=== PATIENT | female | born 1965 | race Caucasian/White ===

== ENCOUNTER 2017-01-18 14:16 | Inpatient (IN) | payer OTHER, MEDICARE ==
[~2017-01-18] VITALS: Ht 167.6 cm; Wt 61.2 kg
[~2017-01-18 14:16] MED LIST: CALCIUM 500 +1 EAC5 PO; DAILY MULTIPLE1 EACH PO; DOCUSATE SODIU100 M3 PO; FLUOXETINE HCL20 M2 PO; GABAPENTIN600 M1 PO; IBUPROFEN800 M1 PO; LACTULOSE10 GM/153 PO; LINZESS290 MC1 PO; LORAZEPAM1 M1 PO; MECLIZINE HCL25 MG PO; MIRALAX17 G1 PO; NEURONTIN800 M2 PO; NEXIUM40 M1 PO; NITRO-BID1 GM TOP; ONDANSETRON HCL8 MG PO; PERCOCET 7.5-31 EACH PO; PROAIR HFA8.5 GM INH; QVAR8.7 G1 INH; SENNA S TABLET1 EACH PO; SYMBICORT 16010.2 GM INH; TEGRETOL200 M1 PO; TEMAZEPAM30 M1 PO; TRAZODONE HCL150 M1 PO
--- NOTE | 2017-01-18 17:09 | ED GENERAL ADULT ---
History of Present Illness General Chief Complaint: General Adult Stated Complaint: MS EXACERBATION Source: patient, family, old records Exam Limitations: no limitations Vital Signs & Intake/Output Vital Signs & Intake/Output Vital Signs Date Time Temp Pulse Resp B/P Pulse O2 O2 Flow FiO2 Ox Delivery Rate 01/18 2026 97.0 65 18 126/60 98 Room Air Room Air 01/18 1905 96.8 63 20 113/61 98 Room Air 01/18 1436 98.8 72 18 198/62 97 Room Air Allergies Coded Allergies: phenytoin (From DILANTIN) (Severe, can't breath and throat swells up 10/11/16) Latex, Natural Rubber (RASH 03/13/16) Sulfa (Sulfonamide Antibiotics) (Severe, VOMIT 03/13/16) Reconcile Medications Albuterol Sulfate (Proair Hfa) 90 MCG HFA.AER.AD 2 PUF INH Q6H PRN SOB ( Reported) Beclomethasone Dipropionate (QVAR) 80 MCG AER.W.ADAP 2 PUF INH BID PRN SOB ( Reported) Budesonide/Formoterol Fumarate (Symbicort 160-4.5 Mcg Inhaler) (Unknown Strength ) HFA.AER.AD 2 PUFF INH BID PRN SOB (Reported) Calcium Carbonate/Vitamin D3 (Calcium 500 + D Tablet) 500 MG-400 TABLET 1 TAB PO BID SUPPLEMENT (Reported) Carbamazepine (Tegretol) 200 MG TABLET 1 TAB PO BID seizures (Reported) Carbamazepine (Tegretol) 200 MG TABLET 3 TAB PO QPM SEIZURES (Reported) Docusate Sodium 100 MG CAPSULE 1 CAP PO QAM CONSTIPATION (Reported) Esomeprazole (Nexium) 40 MG CAPSULE.DR 1 CAP PO DAILY GI (Reported) Fluoxetine HCl 20 MG CAPSULE 3 CAP PO DAILY MENTAL HEALTH (Reported) Gabapentin (Neurontin) 800 MG TABLET 2 TAB PO QPM SEIZURES (Reported) Gabapentin 600 MG TABLET 2 TAB PO TID seizures (Reported) Ibuprofen 800 MG TABLET 1 TAB PO Q6-8P PRN PAIN (Reported) Lactulose 10 GRAM/15 ML SOLUTION 20 ML PO DAILY PRN CONSTIPATION (Reported) Linaclotide (Linzess) 290 MCG CAPSULE 1 CAP PO QAM GI (Reported) Lorazepam 1 MG TABLET 1 TAB PO 4 TIMES/DAY ANXIETY (Reported) Meclizine HCl 25 MG TABLET 1 TAB PO TIDPRN PRN DIZZINESS (Reported) Multivitamin (Daily Multiple Vitamin) 1 EACH TABLET 1 TAB PO QAM SUPPLEMENT ( Reported) Naloxegol Oxalate (Movantik) 25 MG TABLET 1 TAB PO QAM CONSTIPATION (Reported ) Nitroglycerin (Nitro-Bid) 2 % OINT...G. 1 GM TOP EVERY 4 HRS/AWAKE PRN CHEST PAIN please have 12 hour period of no nitroglycerin use Ondansetron HCl 8 MG TABLET 1 TAB PO TID PRN NAUSEA/VOMITING (Reported) Oxycodone HCl/Acetaminophen (Percocet 7.5-325 MG Tablet) 7.5 MG-325 MG TABLET 1 TAB PO Q6-PRN PRN PAIN (Reported) Polyethylene Glycol 3350 (Miralax) 17 GRAM POWD.PACK 1 PAC PO DAILY PRN CONSTIPATION (Reported) dissolve in water Sennosides/Docusate Sodium (Senna S Tablet) 8.6 MG-50 MG TABLET 2 TAB PO DAILY PRN CONSTIPATION (Reported) Temazepam 30 MG CAPSULE 1 CAP PO QPM SLEEP (Reported) Trazodone HCl 150 MG TABLET 2 TAB PO QHS UNKNOWN (Reported) Triage Note: PT STATES THAT SHE HAS BEEN HAVING MS FLARE UP FOR THE PAST 2 WEEKS, CALLED DR MYERS AND WAS TOLD TO COME TO ER FOR ADMISSION. PT STATES THAT SHE DOES NOT DO OUT PT BECAUSE SHE LIVES IN [place]. PT COMPLAINS OF LEG PAIN AND BURNING. Triage Nurses Notes Reviewed? yes Onset: Gradual Duration: week(s): (2), constant, continues in ED, getting worse Timing: recent history Injury Environment: home Severity: severe Severity Numbers: 10 No Modifying Factors: none Associated Symptoms: DENIES HPI: 52 year old female with past medical history significant for multiple sclerosis diagnosed in 1997, follows Dr. Paulson, neuropathic pain, chronic constipation, GERD, depression, anxiety, insomnia, irritable bowel syndrome, pseudoseizures resents sent in by her neurologist for evaluation and admission for IV Solu-Medrol. The patient states that she's had progressively worsening difficulty walking, heaviness in her legs numbness pain needles with frequent falls getting worse over the past several weeks. There is been no recent head strike or other injury. There is been no fever no chills no chest pain shortness of breath swelling or rashes to her skin. She presents sent in by her neurologist for administration of IV Solu-Medrol 1 g over one to 2 hours for 5 days. There is no modifying factors or associated symptoms otherwise. No trauma from the falls (LARA MURCIA) Past History Travel History Traveled to [place] past 21 day No Medical History Any Pertinent Medical History? see below for history Neurological: multiple sclerosis, PSEUDO SEIZURES EENT: allergies Cardiovascular: hyperlipidemia Respiratory: asthma Gastrointestinal: GERD, IRRITABLE COLON SYNDROME Hepatic: NONE Renal: NONE Musculoskeletal: OSTEOPENIA Psychiatric: anxiety, depression Endocrine: NONE Blood Disorders: anemia Cancer(s): NONE ENGINEERING OFFICER/Reproductive: NONE History of MRSA: Yes History of VRE: No History of CDIFF: No Pneumonia Vaccine: 07/27/16 Surgical History Surgical History: unobtainable Psychosocial History Who do you live with Significant Other Services at Home None What is your primary language [place] Tobacco Use: Never used ETOH Use: denies use Illicit Drug Use: denies illicit drug use Family History Family History, If Any: FATHER Multiple sclerosis Hx Contributory? No (LARA MURCIA) Review of Systems Review of Systems Constitutional: Reports: see HPI. All Other Systems: Reviewed and Negative Comments Review of systems: See HPI, All other systems negative. Constitutional, no chills no fever, no malaise HEENT: No visual changes no sore throat no congestion, Cardiovascular: No chest pain , no palpitation , Skin, no rashes, no change in skin Respiratory: No dyspnea no cough no sputum GI: No nausea no vomiting, no diarrhea, : No dysuria No hematuria, Muscle skeletal: No joint pain, no joint swelling, no back pain, no neck pain, Neurologic: numbness no confusion, no headache Psych: No stress. Heme/endocrine: No bruising no bleeding Immunology: No lymphadenopathy (LARA MURCIA) Physical Exam Physical Exam General Appearance: well developed/nourished, alert, awake Comments: Well-developed well-nourished person in no acute distress HEENT: Normal EENT exam; PERRL, EOMI, HEAD is atraumatic. moist mucous membranes. Neck: Supple, normal range of motion Back: Nontender,. Full range of motion Cardiovascular: Regular rate and rhythms no murmurs rubs Respiratory:No respiratory distress. Patient speaking in full complete sentences. Breath sounds clear to auscultation bilaterally: NO W/R/R Abdomen: Soft, nontender nondistended, no appreciable organomegaly. Normal bowel sounds. No rebound/guarding, Extremity: No edema, full range of motion of extremities, normal and equal pulses bilaterally, 3 out of 5 strength noted to bilateral lower extremities, 5 OUT OF 5 strength b/l ue Neuro: Alert oriented x3, motor sensory normal, cranial nerves II through XII grossly intact. There were no obvious focal neurologic abnormalities. Skin: No appreciable rash on exposed skin, skin is warm and dry. Psych: Mood and affect is normal, memory and judgment is normal. Core Measures ACS in differential dx? No CVA/TIA Diagnosis: No Severe Sepsis Present: No Septic Shock Present: No (BEBETO MARTINS,LARA) Progress Differential Diagnoses I considered the following diagnoses in my evaluation of the patient: MS exacerbation dehydration and electrolyte abnormality Plan of Care: Orders Procedure Date/time Status Regular Diet 01/19 B Active OXYGEN SETUP (GEN) 01/18 1925 Active Saline Lock 01/18 1925 Active Admit to inpatient 01/18 1925 Active Vital Signs 01/18 1925 Active Activity/Ambulation 01/18 1925 Active Code Status 01/18 1925 Active Patient Data 01/18 1923 Active Intake & Output 01/18 191 Active COMPREHENSIVE METABOLIC PANEL 01/18 173 Complete CBC WITHOUT DIFFERENTIAL 01/18 173 Complete Current Medications Sig/Lenny Start time Last Medication Dose Stop Time Status Admin Carbamazepine 600 MG ONCE ONE 01/18 2100 AC (Tegretol XR 200 MG) 01/18 2101 Gabapentin 1,600 MG ONCE ONE 01/18 2100 AC (Neurontin) 01/18 2101 Lorazepam 1 MG ONE ONE 01/18 2100 AC (Ativan) 01/18 2101 Temazepam 30 MG ONCE ONE 01/18 2100 AC (Restoril) 01/18 2101 Trazodone HCl 300 MG ONCE ONE 01/18 2100 AC (Desyrel) 01/18 2101 Methylprednisolone 1,000 MG ONCE ONE 01/18 1745 AC (Solu Medrol) 01/18 2246 Dextrose/Water 1,000 ML (D5W 1000) Oxycodone HCl 5 MG ONCE ONE 01/18 1745 CAN (Roxicodone) 01/18 174 Laboratory Tests 01/18/17 1839: Anion Gap 7, Estimated GFR > 60, BUN/Creatinine Ratio 18.8, Glucose 95, Calcium 9.0, Total Bilirubin 0.3, AST 24, ALT 31, Alkaline Phosphatase 60, Total Protein 5.7 L, Albumin 3.4 L, Globulin 2.3, Albumin/Globulin Ratio 1.5, CBC w Diff NO MAN DIFF REQ, RBC 3.91 L, MCV 87.2, MCH 28.1, RDW 16.6 H, MPV 8.7, Gran % 45.4 , Lymphocytes % 41.7, Monocytes % 10.7 H, Eosinophils % 1.0, Basophils % 1.2, Absolute Granulocytes 2.0, Absolute Lymphocytes 1.8, Absolute Monocytes 0.5, Absolute Eosinophils 0, Absolute Basophils 0.1, PUBS MCHC 32.2 L Labs ordered old records reviewed, sOLuMedrol 1 g IV ordered 1919 case d/w dr NORWOOD WILL ADMIT (LARA MURCIA) Initial ED EKG: none (LARA MURCIA) Departure Departure Time of Disposition: 1919 Disposition: STILL A PATIENT Condition: Stable Clinical Impression Primary Impression: Multiple sclerosis exacerbation Secondary Impressions: Gait instability Referrals: UNKNOWN (PCP) Departure Forms: Customer Survey General Discharge Information Admission Note Spoke With: LISET NORWOOD MD Documentation of Exam: Documentation of any treatments & extenuating circumstances including Concerns Regarding Discharge (functional status, medication knowledge or non-compliance, living conditions, etc.) that warrant an admission rather than observation: TREND LABS, IV STEROIDS, NEURO CONSULT, PREMATURE DISCHARGE WOULD BE MEDICALLY HARMFUL GIVEN GAIT INSTABILITY (LARA MURCIA) PA/TREE KILLER Co-Sign Statement Statement: ED Attending supervision documentation- x I saw and evaluated the patient. I have also reviewed all the pertinent lab results and diagnostic results. I agree with the findings and the plan of care as documented in the PA's/TREE KILLER's documentation. [] I have reviewed the ED Record and agree with the PA's/TREE KILLER's documentation. [] Additions or exceptions (if any) to the PAs/TREE KILLER's note and plan are summarized below: [] (ALEIDA HAMMOND,BOB) Critical Care Note Critical Care Note Critical Care Time: non-applicable (LARA MURCIA)
[2017-01-18] MEDS ORDERED: TRAZODONE HCL150 M1 PO (18:14)
[2017-01-18] MEDS ORDERED: MOVANTIK25 M1 PO (18:15)
[2017-01-18] MEDS ORDERED: SENNA S TABLET1 EACH PO (18:26)
[2017-01-18] MEDS ORDERED: QVAR8.7 G1 INH (18:26)
[2017-01-18 18:54] LABS: ABSOLUTE BASOPHIL COUNT 0.1 /CUMM (0.0-0.2); ABSOLUTE EOSINOPHIL COUNT 0 /CUMM (0.0-0.7); ABSOLUTE LYMPH COUNT 1.8 /CUMM (1.2-3.4); ABSOLUTE MONOCYTE COUNT 0.5 /CUMM (0.10-0.60); BASOPHIL % 1.2 % (0.0-2.0); GRANULOCYTE % 45.4 % (42.2-75.2); HEMATOCRIT 34.1 % (37-47); MEAN CORPUSCULAR HGB 28.1 PG (27.0-31.0); MEAN CORPUSCULAR HGB CONC 32.2 G/DL (33.0-37.0); MEAN CORPUSCULAR VOLUME 87.2 FL (81.0-99.0); MEAN PLATELET VOLUME 8.7 FL (7.4-10.4); PLATELET COUNT 153 /CUMM (130-400); RBC DISTRIBUTION WIDTH 16.6 % (11.5-14.5); RED BLOOD CELL CT 3.91 /CUMM (4.20-5.40); WHITE BLOOD CELL COUNT 4.4 /CUMM (4.8-10.8)
--- NOTE | 2017-01-18 21:37 | Admission Certification ---
Admission Certification Certification Statement - As attending physician, I certify that at the time of - admission, based on clinical presentation, severity of - symptoms, need for further diagnostic testing and - therapeutic interventions, and risk of adverse outcomes - without in-hospital treatment, in my clinical assessment, - this patient requires an acute hospital stay for a minimum - of two nights or longer. I have also considered psychsocial - factors such as support system, advanced age, financial - issues, cognitive issues, and failed out-patient treatments, - past re-admission history, safety of patient, and lack of - compliance as applicable. Specific rationale supporting this admission is: MS exacerbation.
[2017-01-18 21:40] VITALS: BP 130/74
--- NOTE | 2017-01-18 21:48 | History & Physical ---
[facility] 01[facility]18[facility]17 1957: General Information and HPI MD Statement: I have seen and personally examined UZMA FERNANDES and documented this H&P. The patient is a 52 year old F who presented with a patient stated chief complaint of increased weakness, falls, blurry vision and pins and needles x 2 weeks. Source of Information: patient Exam Limitations: no limitations History of Present Illness: 52-year-old woman, with a past medical history of multiple sclerosis previously been on plasmapheresis, irritable bowel syndrome, pseudoseizures, history of palpitations, anxiety, depression, GERD, Asthma, urinary retention due to MS, presented to the [facility] ED today with complaints of increased weakness , difficulty walking, sensations of pins and needles and frequent falls since the past 2 weeks. According to the patient she started developing these symptoms 2 weeks ago but has been progressively getting was. She reported that these are the usual symptoms she gets whenever she has an MS exacerbation. She started developing weakness in her lower extremities that led to difficulty walking even with a walker and she ended up having 3 to 4 falls almost every day. She also had associated hypersensitivity to touch and pain, pain that could be as bad as 10+/ 10, burning sensation like somebody has dropped a bucket of water on her legs, sensations of pins and needles, heavy legs as if they were log/lead, and numbness. He also reported blurring of her vision, and at times she becomes cross eyed that leads to headaches as well. According to the patient whenever she starts with the symptoms she goes to her primary care physician, Dr. Mere Latif, at [facility], who contacts Dr. Paulson, who is the patient's outpatient neurologist and MS doctor, and she gets admitted to [facility] for IV steroids. Today [facility] refused admission and she came to [facility], where she actually likes it better. She used to have to MS exacerbations per the past 2 years she started having 3 MS exacerbations per year. Last MS exacerbation was in September 2016 when she was admitted to [facility]. At that time she also had a seizure. She has a history of pseudoseizures and her last seizure was in October 2016, but was not admitted. EEG done in November 2013, showed abnormal recording because of paroxysmal erythemic slow with activities in the left temporal head region which was consistent with potentially epileptogenic activity. She also has symptoms of constipation alternating with diarrhea secondary to her irritable bowel syndrome. She normally has constipation for 2-3 days, takes her Linzess, and bowel regimen intermittently, and whenever she has a bowel movement it's generally loose. She can have up to 1-3 loose bowel movements the day she has a bowel movement. Also has associated abdominal pain, which is intermittent , and is associated with her irritable bowel syndrome. Today he reports abdominal pain, more in the left lower quadrant, with positive tenderness, but denies any nausea or vomiting. Her last bowel movement was 2 days ago. Quin also reported that she has urinary retention secondary to her MS, she has sensations. However at times she has to push hard to be able to urinate. No history of urinary incontinence but she does report stool incontinence at times because of her loose stools and a history of wearing a diaper at times at night. She also reported burning urination 2 days ago but denied it today. The patient has OT and PT coming over to replace twice a week and nursing will come twice a week as well. She denies chest pain, shortness of breath, although she uses inhalers intermittently but does not have a diagnosis of COPD or asthma. Denies fever or chills. Allergies/Medications Allergies: Coded Allergies: phenytoin (From DILANTIN) (Severe, can't breath and throat swells up 10/11/16) Latex, Natural Rubber (RASH 03/13/16) Sulfa (Sulfonamide Antibiotics) (Severe, VOMIT 03/13/16) Home Med list Albuterol Sulfate (Proair Hfa) 90 MCG HFA.AER.AD 2 PUF INH Q6H PRN SOB ( Reported) Beclomethasone Dipropionate (QVAR) 80 MCG AER.W.ADAP 2 PUF INH BID PRN SOB ( Reported) Budesonide/Formoterol Fumarate (Symbicort 160-4.5 Mcg Inhaler) (Unknown Strength ) HFA.AER.AD 2 PUFF INH BID PRN SOB (Reported) Calcium Carbonate/Vitamin D3 (Calcium 500 + D Tablet) 500 MG-400 TABLET 1 TAB PO BID SUPPLEMENT (Reported) Carbamazepine (Tegretol) 200 MG TABLET 1 TAB PO BID seizures (Reported) Carbamazepine (Tegretol) 200 MG TABLET 3 TAB PO QPM SEIZURES (Reported) Docusate Sodium 100 MG CAPSULE 1 CAP PO QAM CONSTIPATION (Reported) Esomeprazole (Nexium) 40 MG CAPSULE.DR 1 CAP PO DAILY GI (Reported) Fluoxetine HCl 20 MG CAPSULE 3 CAP PO DAILY MENTAL HEALTH (Reported) Gabapentin (Neurontin) 800 MG TABLET 2 TAB PO QPM SEIZURES (Reported) Gabapentin 600 MG TABLET 2 TAB PO TID seizures (Reported) Lactulose 10 GRAM/15 ML SOLUTION 20 ML PO DAILY PRN CONSTIPATION (Reported) Linaclotide (Linzess) 290 MCG CAPSULE 1 CAP PO QAM GI (Reported) Lorazepam 1 MG TABLET 1 TAB PO 4 TIMES/DAY ANXIETY (Reported) Meclizine HCl 25 MG TABLET 1 TAB PO TIDPRN PRN DIZZINESS (Reported) Multivitamin (Daily Multiple Vitamin) 1 EACH TABLET 1 TAB PO QAM SUPPLEMENT ( Reported) Naloxegol Oxalate (Movantik) 25 MG TABLET 1 TAB PO QAM CONSTIPATION (Reported ) Ondansetron HCl 8 MG TABLET 1 TAB PO TID PRN NAUSEA/VOMITING (Reported) Oxycodone HCl/Acetaminophen (Percocet 7.5-325 MG Tablet) 7.5 MG-325 MG TABLET 1 TAB PO Q6-PRN PRN PAIN (Reported) Polyethylene Glycol 3350 (Miralax) 17 GRAM POWD.PACK 1 PAC PO DAILY PRN CONSTIPATION (Reported) dissolve in water Sennosides/Docusate Sodium (Senna S Tablet) 8.6 MG-50 MG TABLET 2 TAB PO DAILY PRN CONSTIPATION (Reported) Temazepam 30 MG CAPSULE 1 CAP PO QPM SLEEP (Reported) Compliance With Home Meds: GOOD Past History Travel History Traveled to [place] past 21 day No Medical History Neurological: multiple sclerosis, PSEUDO SEIZURES EENT: allergies Cardiovascular: hyperlipidemia Respiratory: asthma Gastrointestinal: GERD, IRRITABLE COLON SYNDROME Hepatic: NONE Renal: NONE Musculoskeletal: OSTEOPENIA Psychiatric: anxiety, depression Endocrine: NONE Blood Disorders: anemia Cancer(s): NONE INTERNATIONAL OPERATIONS MANAGER/Reproductive: NONE History of MRSA: Yes History of VRE: No History of CDIFF: No Pneumonia Vaccine: 07/27/16 Surgical History Surgical History: none, cholecystectomy, hysterectomy, left arm graft ECHO Results (as available) Date of last Echo 10/17/16 EF% 65 Past Family/Social History Family History Relations & Conditions if any FATHER Multiple sclerosis DAUGHTER (MS). maternal grandmother (DM). maternal grandfather (DM). paternal grandfather (lung and pancreatic cancer). Psychosocial History Where do you live? Home Who Do You Live With? spouse Services at Home: None Primary Language: French Smoking Status: Never Smoked ETOH Use: denies use Illicit Drug Use: denies illicit drug use Living Will? yes Power of Fitness Professional/HCP? makes decisions herself but in case of emergency and son to be POA Name of POA/HCP: Morgan Winter () Irvin Fernandes (son Functional Ability ADLs Independent: dressing, eating, toileting, bathing. Ambulation: walker IADLs Independent: finances, telephone, medication admin. Needs Assist: housework, food prep, transportation. Review of Systems Review of Systems Constitutional: Reports: weakness. EENTM: Reports: blurred vision. Cardiovascular: Reports: no symptoms. Respiratory: Reports: no symptoms. GI: Reports: see HPI, abdominal pain, constipation, diarrhea. Denies: nausea, bloody stool. Genitourinary: Reports: see HPI. Musculoskeletal: Reports: see HPI. Skin: Reports: no symptoms. Neurological/Psychological: Reports: see HPI, weakness. Hematologic/Endocrine: Reports: no symptoms. Immunologic/Allergic: Reports: no symptoms. Date of Last Colonoscopy: 04/26/14 Exam & Diagnostic Data Last 24 Hrs of Vital Signs/I&O Vital Signs Date Time Temp Pulse Resp B/P Pulse O2 O2 Flow FiO2 Ox Delivery Rate 01/18 2140 97.6 61 20 130/74 95 Room Air 01/18 2026 97.0 65 18 126/60 98 Room Air Room Air 01/18 1905 96.8 63 20 113/61 98 Room Air 01/18 1436 98.8 72 18 198/62 97 Room Air Intake & Output 01/18 1600 01/18 0800 01/18 0000 Intake Total Output Total Balance Patient 134 lb Weight Physical Exam General Appearance Alert, Oriented X3, Cooperative, No Acute Distress Skin No Rashes, No Breakdown, No Significant Lesion HEENT Atraumatic, PERRLA, EOMI, Mucous Membr. moist/pink Neck Supple, No JVD Lymphatic Cervical nl Cardiovascular Regular Rate, Normal S1, Normal S2, No Murmurs Lungs Clear to Auscultation, Normal Air Movement Abdomen Normal Bowel Sounds, Soft, LLQ tenderness, no CVA tenderness Neurological Normal Speech, rigidity in bilateral lower extremities strength 3/5 bilateral lower extremities, 5/5 bilateral upper extremities sensations intact, but reduced in bilateral lower extremities CN intact Babinski negative propioception intact hyperreflexia in bilateral lower extremities involuntary jerky movements of the legs, intermittently, always associated with MS exacerbation as per the patient Extremities No Clubbing, No Cyanosis, No Edema, Normal Pulses Vascular Normal Pulses, Pulses Symmetrical Last 24 Hrs of Labs/Lewis: Laboratory Tests 01/18/17 1839: Anion Gap 7, Estimated GFR > 60, BUN/Creatinine Ratio 18.8, Glucose 95, Calcium 9.0, Total Bilirubin 0.3, AST 24, ALT 31, Alkaline Phosphatase 60, Total Protein 5.7 L, Albumin 3.4 L, Globulin 2.3, Albumin/Globulin Ratio 1.5, CBC w Diff NO MAN DIFF REQ, RBC 3.91 L, MCV 87.2, MCH 28.1, RDW 16.6 H, MPV 8.7, Gran % 45.4 , Lymphocytes % 41.7, Monocytes % 10.7 H, Eosinophils % 1.0, Basophils % 1.2, Absolute Granulocytes 2.0, Absolute Lymphocytes 1.8, Absolute Monocytes 0.5, Absolute Eosinophils 0, Absolute Basophils 0.1, PUBS MCHC 32.2 L Assessment/Plan Assessment: 52-year-old woman, with a past medical history of multiple sclerosis, irritable bowel syndrome, pseudoseizures, history of palpitations, anxiety, depression, GERD, urinary retention due to MS, presented to the [facility] ED today with complaints of increased weakness, difficulty walking, sensations of pins and needles and frequent falls since the past 2 weeks, admitted to general medicine floor for MS exacerbation. Assessment: 1. MS exacerbation 2. Urinary retention, question UTI 3. Abdominal pain/Irritable bowel syndrome 4. History of pseudoseizures 5. History of anxiety and depression 6. History of shortness of breath, Asthma 7. History of GERD Plan: Admit to general med Vitals every shift 1. MS exacerbation: - The patient has a history of an MS, last exacerbation in September 2016, that is 3 months prior to this admission. Usually has 3 exacerbations per year since the past 2 years now - Previously has been on plasmapheresis, not getting it currently - MRI in Sep 2016 was stable - We'll start her on 1 mg Solu-Medrol infused over 1-2 hours for a total of 5 days (one bag was ordered in the ED, will order 4 more for a total of 5) - We'll premedicate with IV Benadryl 25 mg 1 time before every infusion - Dr. Paulson informed for a consult in the morning, that he has acknowledged - Physical therapy - Occupational therapy - Currently seems euvolemic, but may consider hydration - IV dilauded works well for her. Was in 10+/10 pain on arrival now is at 5/10 which is her baseline., after IV dilauded 0.4 mg - Will keep on IV Dilauded 0.4 mg Q4PRN severe pain (7-10) 2. Urinary retention, with burning micturation, question UTI: - Patient has a history of urinary retention secondary to her MS. She has sensations intact and does not report urinary incontinence but at times she has to strain a little to get her urine out - She sees a urologist for urinary retention and has had some workup done in April 2015 but is not on any medications for urinary retention - In case the patient has trouble passing urine may consider bladder scans/ straight cath if needed. Is important to note that the patient did urinate just prior to the medical team went in for the HPI - As the patient also reported urinary burning 2 days ago and his initial retention with history stagnation and possibility of a UTI we'll check a UA - No fever, no leukocytosis, but may consider starting antibiotics if the UA is positive 3. Abdominal pain/Irritable bowel syndrome: - The patient has a history of retinal bowel syndrome with constipation and diarrhea alternating and not one being predominant and over the other. Her last bowel movement was 2 days ago. - Normally whenever she has a bowel movement after. Constipation it's always loose and that is normal for her - Can have 1-3 loose bowel movements per day on her diarrhea day - She reports abdominal pain intermittently that is associated with her irritable bowel syndrome. She reported abdominal pain today as well with tenderness in the left lower quadrant which is not new for her. - We'll continue with daily Linzess - We'll also continue with when necessary MiraLAX, lactulose and senna S - We'll monitor for abdominal pain in case it gets worse may need further investigation and questionable GI involvement 4. History of pseudoseizures: - The patient has a history of seizures, pseudoseizures as per her medical records and the patient herself - She had some involuntary jerking movements of her leg which she states is normal in her MS exacerbation and anxiety [place] adds to it. For her seizures jerking movements of her extremities and maintaining a position with some rigidity - Last seizure was in October 2016, at home, did not warrant admission - Of note she did have a seizure in September 2016 when she was last admitted to [facility] for MS exacerbation - We'll continue with carbamazepine 200 mg twice a day and 600 mg at night - We'll also continue with gabapentin 1200 mg 3 times a day and 1600 mg at night - We'll follow seizure precautions 5. History of anxiety and depression: - Patient has a history of anxiety and depression that aggravates whenever she has an MS exacerbation - We'll continue with Ativan 1 mg 4 times a day - We'll also continue with Restoril 30 mg every night - We'll continue with Prozac 60 mg every morning 6. History of shortness of breath, no diagnosis of asthma or COPD: - Patient does not have a diagnosis of COPD or asthma but has history of shortness of breath on and off that could be likely secondary to MS versus anxiety - Currently does not seem to be in any respiratory distress, saturations are beautiful on room air - We'll continue with when necessary albuterol, Symbicort and beclomethasone inhalers, that she uses at home 7. History of GERD: - We'll continue with Nexium 40 mg by mouth daily 8. Regular diet 9. Due to prophylaxis: Subcutaneous heparin 10. Pain pathway: Acetaminophen for mild, 1 Percocet for moderate pain and IV Dilauded severe pain when necessary 11. Full CODE STATUS *The patient has a living will that states that she wants to be cystic but does not want to live like a vegetable. Case of an emergency she can be intubated in CPR done but she is on a ventilator for prolonged time than it should be taken off. She makes her own decisions however in case she is unable to the power of defense attorney would be: , Morgan Yang ([phone]) Son, Irvin Fernandes ([phone]) As Ranked By This Provider Problem List: 1. Multiple sclerosis exacerbation 2. DVT prophylaxis 3. Full code status 4. Anxiety 5. Seizure disorder Core Measures/Miscellaneous Acute Coronary Syndrome ACS Diagnosis: No Cerebrovascular Accident CVA/TIA Diagnosis: No Congestive Heart Failure CHF Diagnosis: No Venous Thromboembolism VTE Risk Factors: Acute medical illness, Age > 40 VTE Prophylaxis [facility]dered Inpt: [facility] prophylaxis d/t: No contraindications No VTE Pharm Prophylaxis d/t: Refused treatment VTE Diagnosis: No VTE Type: NONE VTE Confirmed by (Test): NONE Severe Sepsis Severe Sepsis Present: No Septic Shock Septic Shock Present: No Miscellaneous Documentation Attending Case Discussed With: BARBARA NORWOOD [facility] Primary Care Physician: Dr. Madhavi Latif (At [facility]) Patient sees these Specialists Dr. Paulson, Neurologist Level of Patient Care: General Medicine Consults Needed: Consulting Specialty: Neurology Consulting Physician: Dr. Paulson Reason for Consult: MS exacerbation Resident Review Statement Resident Statement: examined this patient, discussed with agriculture intern, agreed with agriculture intern, reviewed EMR data (avail), discussed with case mgmt Other Findings: Same as Above MAURICIO NORWOOD MD 01/18/171: Attending MD Review Statement Attending Statement Attending MD Statement: examined this patient, discuss w/resident/PA/WOOD STRIP BLOCK FLOOR INSTALLER, agreed w/resident/PA/WOOD STRIP BLOCK FLOOR INSTALLER Attending Assessment/Plan: 52 yo F with h/o multiple sclerosis previously been on plasmapheresis last admitted for exacerbation in Sep 2016, seizure, pseudoseizures, IBS, GERD, anxiety, depression, is here with another episode of MS exacerbation typically with increasing lower extremity weakness, sensation of pins and needles, gait instability and frequent falls over past 2 weeks. She reports urinary retention, wherein she feels the urge but at times has to push hard to evacuate the bladder. Dysuria+. Stool incontinence+. She has been sent in by Dr. Paulson. VSS. Exam: Speech normal, Power LE 4/5, UE 5/5, hyperreflexia, sensation and vision intact, involuntary jerking movements of the leg, tone increased. Labs: WBC 4.4. MRI brain (Sep 2016): No progression or active inflammation of MS 1. MS exacerbation. GM admit, seizure precautions, IV steroids daily for 5 days, premedicate with benadryl. Consult Dr. Paulson. PT/OT. Pain management with dilaudid. 2. Urinary retention in the setting of MS. Rule out UTI. Patient does not straight cath herself. Please obtain UA and assess need for antibiotics. Bladder scan to assess post void residual. DVT ppx Lovenox. Full code.
[2017-01-19 06:54] VITALS: BP 110/64
--- NOTE | 2017-01-19 07:49 | PN- Housestaff ---
ANDREA HAMMOND,SHANTEL 01/19/17 0746: Subjective Follow-up For: MS exacerbation Complaints: feeling weak, frequency Subjective: She was doing occupational therapy at bedside. She has unsteady gait feeling weak. She c/o urgency and feeing of incomplete bladder emptying. She is at baseline independent, ambulatory. Review of Systems Constitutional: Reports: malaise, weakness. Denies: chills, fever. EENTM: Reports: blurred vision. Denies: hearing changes, nasal pain, throat pain. Cardiovascular: Denies: chest pain, orthopena, palpitations, peripheral edema. Respiratory: Denies: cough, short of breath, sputum production, wheezing. Gastrointestinal: Denies: abdominal pain, diarrhea, nausea, vomiting. Genitourinary: Reports: see HPI, frequency, urgency. Musculoskeletal: Reports: muscle pain. Skin: Reports: no symptoms. Neurological/Psychological: Reports: weakness. Hematologic/Endocrine: Reports: no symptoms. Immunologic/Allergic: Reports: no symptoms. Objective Last 24 Hrs of Vital Signs/I&O Vital Signs Date Time Temp Pulse Resp B/P Pulse O2 O2 Flow FiO2 Ox Delivery Rate 01/19 0654 98.3 70 20 110/64 95 Room Air 01/18 2140 97.6 61 20 130/74 95 Room Air 01/18 2026 97.0 65 18 126/60 98 Room Air Room Air 01/18 1905 96.8 63 20 113/61 98 Room Air 01/18 1436 98.8 72 18 198/62 97 Room Air Intake & Output 01/19 0800 01/19 0000 01/18 1600 Intake Total Output Total 350 Balance -350 Output, Urine 350 Patient 135 lb 134 lb Weight Physical Exam General Appearance: Alert, Oriented X3, Cooperative, Mild Distress Skin: No Rashes, No Breakdown, No Significant Lesion HEENT: Atraumatic, PERRLA, EOMI, Mucous Membr. moist/pink Neck: Supple, No JVD, No thryomegaly, No LAD Lymphatic: Cervical nl Cardiovascular: Regular Rate, Normal S1, Normal S2, No Murmurs Lungs: Clear to Auscultation, Normal Air Movement Abdomen: Normal Bowel Sounds, Soft, No Tenderness Neurological: Normal Speech, Normal Tone, Sensation Intact, Cranial Nerves 3-12 NL, decreased strength 4/5 LE Extremities: No Edema, Normal Pulses, No Tenderness/Swelling Vascular: Normal Pulses, Pulses Symmetrical Current Medications: Current Medications Sig/Lenny Start time Last Medication Dose Route Stop Time Status Admin Acetaminophen 650 MG Q6P PRN 01/18 221 AC PO Budesonide/ 2 PUF BID 01/18 2200 AC Formoterol Fumarate INH Calcium/Vitamin D 1 TAB DAILY 01/19 1000 AC PO Carbamazepine 200 MG 1200,1700 01/19 1200 AC PO Carbamazepine 600 MG QPM 01/18 2200 AC PO Carbamazepine 600 MG ONCE ONE 01/18 2100 DC PO 01/18 210 Diphenhydramine HCl 25 MG 2200 01/19 2200 AC IV Diphenhydramine HCl 0 .STK-MED ONE 01/18 1850 DC .ROUTE Diphenhydramine HCl 25 MG ONCE ONE 01/18 1800 DC 01/18 IV 01/18 1801 2149 Docusate Sodium 100 MG QAM 01/19 1000 AC PO Fluoxetine HCl 60 MG DAILY 01/19 1000 AC PO Gabapentin 1,600 MG QPM 01/19 2200 AC PO Gabapentin 1,200 MG 0700,1200,1700 01/19 0700 AC 01/19 PO 0542 Gabapentin 1,600 MG QPM 01/18 2200 CAN PO 01/19 0600 Gabapentin 1,600 MG ONCE ONE 01/18 2100 DC 01/18 PO 01/18 210 2156 Heparin Sodium 5,000 UNIT Q8 01/18 2200 AC 01/19 (Porcine) SC 0541 Hydromorphone HCl 0.4 MG Q4P PRN 01/18 2330 AC IV Hydromorphone HCl 0 .STK-MED ONE 01/18 184 DC .ROUTE Hydromorphone HCl 0.5 MG ONCE ONE 01/18 1845 DC 01/18 IV 01/18 1846 1856 Lactulose 20 GM DAILY NEEDED PRN 01/18 2215 AC PO Linaclotide 290 MCG DAILY 01/19 1000 AC PO Lorazepam 1 MG 4 TIMES/DAY 01/18 2203 AC PO Lorazepam 1 MG ONE ONE 01/18 2100 DC 01/18 PO 01/18 2101 2150 Meclizine HCl 25 MG TIDPRN PRN 01/18 2215 AC PO Meclizine HCl 0 .STK-MED ONE 01/18 1846 DC PO Meclizine HCl 25 MG ONCE ONE 01/18 1745 DC 01/18 PO 01/18 1746 1856 Methylprednisolone 1,000 MG 01/19 220 AC Dextrose/Water 1,000 ML IV 01/23 0000 Methylprednisolone 1,000 MG ONCE ONE 01/18 1745 DC 01/18 Dextrose/Water 1,000 ML IV 01/18 2246 2149 Multivitamins 1 TAB QAM 01/19 1000 AC Therapeutic PO Omeprazole 40 MG DAILY AC 01/19 0700 AC 01/19 PO 0542 Ondansetron HCl 4 MG Q6-PRN PRN 01/18 221 AC PO Oxycodone HCl 5 MG ONCE ONE 01/18 1745 CAN PO 01/18 174 Oxycodone/ 1 TAB Q6P PRN 01/18 221 AC Acetaminophen PO Oxycodone/ 2 TAB Q6P PRN 01/18 221 DC Acetaminophen PO Polyethylene Glycol 17 GM DAILY 01/19 1000 AC PO Senna/Docusate Sodium 2 TAB DAILY PRN 01/18 221 AC PO Temazepam 30 MG QPM 01/19 2200 AC PO Temazepam 30 MG ONCE ONE 01/18 2100 DC PO 01/18 210 Trazodone HCl 300 MG ONCE ONE 01/18 2100 DC 01/18 PO 01/18 2101 2156 Last 24 Hrs of Lab/Lewis Results Last 24 Hrs of Labs/Mics: Laboratory Tests 01/19/17 0550: Sodium Pending, Potassium Pending, Chloride Pending, Carbon Dioxide Pending, Anion Gap Pending, BUN Pending, Creatinine Pending, BUN/Creatinine Ratio Pending , CBC w Diff Pending, WBC Pending, RBC Pending, Hgb Pending, Hct Pending, MCV Pending, MCH Pending, RDW Pending, Plt Count Pending, MPV Pending, PUBS MCHC Pending 01/18/17 1839: Anion Gap 7, Estimated GFR > 60, BUN/Creatinine Ratio 18.8, Glucose 95, Calcium 9.0, Total Bilirubin 0.3, AST 24, ALT 31, Alkaline Phosphatase 60, Total Protein 5.7 L, Albumin 3.4 L, Globulin 2.3, Albumin/Globulin Ratio 1.5, CBC w Diff NO MAN DIFF REQ, RBC 3.91 L, MCV 87.2, MCH 28.1, RDW 16.6 H, MPV 8.7, Gran % 45.4 , Lymphocytes % 41.7, Monocytes % 10.7 H, Eosinophils % 1.0, Basophils % 1.2, Absolute Granulocytes 2.0, Absolute Lymphocytes 1.8, Absolute Monocytes 0.5, Absolute Eosinophils 0, Absolute Basophils 0.1, PUBS MCHC 32.2 L Lines/Diet/Fluids Lines: peripheral lines Assessment/Plan Assessment: 52 yo F with pmh of multiple sclerosis previously been on plasmapheresis last admitted for exacerbation in Sep 2016 (following Dr. Paulson), seizure, pseudoseizures, IBS, GERD, anxiety, depression, is here with another episode of MS exacerbation typically with increasing lower extremity weakness, sensation of pins and needles, gait instability and frequent falls over past 2 weeks. She reports urinary retention, wherein she feels the urge but at times has to push hard to evacuate the bladder. Dysuria+. Stool incontinence+. She has been sent in by Dr. Paulson. 1. MS exacerbation: seizure precautions, continue IV steroids daily for 5 days, premedicate with benadryl. Last MRI brain (Sep 2016): No progression or active inflammation of MSPT/OT. Continue OT/PT. She feels very weak with muscle pain. She has never had outpatient IV steroid. Will follow Dr. Paulson's recommendation. 2. Urinary retention in the setting of MS. Patient does not straight cath herself. Will follow up UA and assess need for antibiotics. Bladder scan to assess post void residual. Pain management with IV dilaudid. DVT ppx Lovenox. Full code. Problem List: 1. Multiple sclerosis exacerbation 2. Seizure disorder 3. Anxiety 4. Gait instability Pain Ratin Pain Location: Muscle pain, LE weakness Pain Goal: Pain 4 or less Pain Plan: IV dilaudid Tomorrow's Labs & Rationales: No labs DVT/Prophylaxis: pharmacological Consulting Request: Consulting Specialty: Neurology Consulting Physician: Dr. Paulson Reason for Consult: MS exacerbation Discharge Plan Stable for Discharge? No JAMIR WILSON MD 01/19/17 1387: Attending MD Review Statement Attending Statement Attending Statement: examined this patient, discuss w/resident/PA/SCIENTIFIC ILLUSTRATOR, agreed w/resident/PA/SCIENTIFIC ILLUSTRATOR, reviewed EMR data (avail), discussed with nursing, amended to note Attending Assessment/Plan: The patient was seen and discussed with house staff. Agree with plan of care. Patient requested time of Medrol dose be earlier (3 pm instead of 10 pm). RN aware and will alter timing.
[2017-01-19 08:12] LABS: ABSOLUTE BASOPHIL COUNT 0 /CUMM (0.0-0.2); ABSOLUTE EOSINOPHIL COUNT 0 /CUMM (0.0-0.7); ABSOLUTE GRANULOCYTE CT 1.7 /CUMM (1.4-6.5); ABSOLUTE LYMPH COUNT 0.5 /CUMM (1.2-3.4); ABSOLUTE MONOCYTE COUNT 0 /CUMM (0.10-0.60); BASOPHIL % 0.3 % (0.0-2.0); EOSINOPHIL % 0.3 % (0-5); HEMATOCRIT 36.4 % (37-47); MEAN CORPUSCULAR HGB 28.9 PG (27.0-31.0); MEAN CORPUSCULAR HGB CONC 33.2 G/DL (33.0-37.0); MEAN CORPUSCULAR VOLUME 87.1 FL (81.0-99.0); PLATELET COUNT 136 /CUMM (130-400); RBC DISTRIBUTION WIDTH 16.5 % (11.5-14.5); RED BLOOD CELL CT 4.18 /CUMM (4.20-5.40); WHITE BLOOD CELL COUNT 2.2 /CUMM (4.8-10.8)
[2017-01-19 08:20] LABS: GRANULOCYTE % 76.8 % (42.2-75.2)
[2017-01-19 14:23] VITALS: BP 104/60
[2017-01-19 22:41] VITALS: BP 120/70
[2017-01-20 06:30] VITALS: BP 126/74
--- NOTE | 2017-01-20 12:37 | PN- Housestaff ---
See Addendum Subjective Follow-up For: MS exacerbation Complaints: no complaints Subjective: Interval history: Overnight the patient did have an episode of seizure-like activity requiring IV Ativan. This morning she states that she feels much better and notices that her symptoms are well-controlled with current regimen of IV steroids and Ativan. Extension without any headache, blurred vision, chest pain, shortness of breath, body aches, fevers or chills at this time Review of Systems Constitutional: Reports: see HPI. EENTM: Reports: no symptoms. Cardiovascular: Reports: no symptoms. Respiratory: Reports: no symptoms. Gastrointestinal: Reports: no symptoms. Musculoskeletal: Reports: see HPI. Objective Last 24 Hrs of Vital Signs/I&O Vital Signs Date Time Temp Pulse Resp B/P Pulse O2 O2 Flow FiO2 Ox Delivery Rate 01/20 0630 98.6 85 20 126/74 93 Room Air 01/19 2241 97.8 99 20 120/70 99 01/19 1423 98.2 70 18 104/60 97 Room Air Intake & Output 01/20 1600 01/20 0800 01/20 0000 Intake Total 100 1600 Output Total 950 900 Balance -850 700 Intake, IV 1000 Intake, Oral 100 600 Number 0 Bowel Movements Output, Urine 950 900 Physical Exam General Appearance: Alert, Cooperative, No Acute Distress Skin: No Significant Lesion HEENT: EOMI, Mucous Membr. moist/pink Cardiovascular: Regular Rate, Normal S1, Normal S2 Lungs: Clear to Auscultation, Normal Air Movement Abdomen: Normal Bowel Sounds, Soft, No Tenderness Extremities: No Edema, Normal Pulses Vascular: Pulses Symmetrical Current Medications: Current Medications Sig/Lenny Start time Last Medication Dose Route Stop Time Status Admin Acetaminophen 650 MG .STK-MED ONE 01/20 0427 DC PO 01/20 0428 Acetaminophen 650 MG .STK-MED ONE 01/19 1537 DC PO 01/19 1538 Acetaminophen 650 MG Q6P PRN 01/18 2215 AC 01/20 PO 0431 Budesonide/ 2 PUF BID 01/18 2200 AC 01/20 Formoterol Fumarate INH 0835 Calcium/Vitamin D 1 TAB DAILY 01/19 1000 AC 01/20 PO 0833 Carbamazepine 200 MG 1200,1700 01/19 1200 AC 01/20 PO 1246 Carbamazepine 600 MG QPM 01/18 2200 AC 01/19 PO 2140 Diphenhydramine HCl 25 MG 2200 02/24 2200 DC IV Diphenhydramine HCl 25 MG 1800 01/19 1800 AC 01/19 IV 1834 Docusate Sodium 100 MG QAM 01/19 1000 AC 01/20 PO 0834 Fluoxetine HCl 60 MG DAILY 01/19 1000 AC 01/20 PO 0833 Gabapentin 1,600 MG QPM 01/19 2200 AC 01/19 PO 2140 Gabapentin 1,200 MG 0700,1200,1700 01/19 0700 AC 01/20 PO 1245 Heparin Sodium 5,000 UNIT Q8 01/18 2200 AC 01/20 (Porcine) SC 1246 Hydromorphone HCl 0.4 MG Q4P PRN 01/18 2330 AC 01/20 IV 1016 Lactulose 20 GM DAILY NEEDED PRN 01/18 2215 AC 01/20 PO 0831 Linaclotide 290 MCG DAILY 01/19 1000 AC 01/20 PO 0834 Lorazepam 1 MG Q6 01/20 0600 AC 01/20 PO 1258 Lorazepam 1 MG ONE ONE 01/20 0315 CAN PO 01/20 0316 Lorazepam 1 MG ONCE ONE 01/20 0315 DC 01/20 IV 01/20 0316 0319 Lorazepam 1 MG 4 TIMES/DAY 01/18 220 DC 01/19 PO 2140 Meclizine HCl 25 MG TIDPRN PRN 01/18 2215 AC 01/20 PO 0832 Methylprednisolone 1,000 MG 1400 01/20 1400 AC Dextrose/Water 1,000 ML IV Methylprednisolone 1,000 MG 1800 01/19 1800 DC 01/19 Dextrose/Water 1,000 ML IV 01/22 2000 1839 Multivitamins 1 TAB QAM 01/19 1000 AC 01/20 Therapeutic PO 0833 Omeprazole 40 MG DAILY AC 01/19 0700 AC 01/20 PO 0554 Ondansetron HCl 4 MG .STK-MED ONE 01/20 0242 DC PO 01/20 0243 Ondansetron HCl 4 MG .STK-MED ONE 01/19 1620 DC PO 01/19 1621 Ondansetron HCl 4 MG .STK-MED ONE 01/19 1618 DC IM 01/19 1619 Ondansetron HCl 4 MG Q6-PRN PRN 01/18 2215 AC 01/20 PO 0245 Oxycodone/ 1 TAB Q6P PRN 02/23 2215 AC Acetaminophen PO Polyethylene Glycol 17 GM DAILY 01/19 1000 AC 01/20 PO 0834 Senna/Docusate Sodium 2 TAB DAILY PRN 01/18 2215 AC 01/19 PO 1151 Temazepam 30 MG QPM 01/19 2200 AC 01/19 PO 2140 Assessment/Plan Assessment: 52 yo F with pmh of multiple sclerosis previously been on plasmapheresis last admitted for exacerbation in Sep 2016 (following Dr. Paulson), seizure, pseudoseizures, IBS, GERD, anxiety, depression, is here with another episode of MS exacerbation typically with increasing lower extremity weakness, sensation of pins and needles, gait instability and frequent falls over past 2 weeks. She reports urinary retention, wherein she feels the urge but at times has to push hard to evacuate the bladder. Dysuria+. Stool incontinence+. She has been sent in by Dr. Paulson. 1. MS exacerbation: * Continue with seizure precautions * IV Solu-Medrol adjusted from 4 PM to 2 PM daily to complete 5 days. Continue premedication with Benadryl * Continue OT/PT * She does report interval improvement in generalized weakness. Will follow Dr. Paulson's recommendation. 2. Urinary retention in the setting of MS. * No evidence of overt urinary retention at this time. * Bladder scan prior to straight cath protocol Pain management with IV dilaudid. DVT ppx Lovenox. Full code. Problem List: 1. Multiple sclerosis 2. Multiple sclerosis exacerbation 3. Seizure disorder Pain Ratin Pain Location: NA Pain Goal: Remain pain free Pain Plan: NA Tomorrow's Labs & Rationales: NA DVT/Prophylaxis: mechanical Consulting Request: Consulting Specialty: Neurology Consulting Physician: Dr. Paulson Reason for Consult: MS exacerbation
[2017-01-20 13:56] VITALS: BP 116/64
[2017-01-20 21:33] VITALS: BP 118/70
[2017-01-21 06:35] VITALS: BP 122/74
--- NOTE | 2017-01-21 07:58 | PN- Housestaff ---
ARVIND SCHULER 01/21/17 0758: Subjective Follow-up For: MS exacerbation Complaints: Tremors nad abdominal discomfort Subjective: Interval history: This morning the patient complained of generalized body shakes and nonspecific abdominal discomfort over the past 1 hour. She denies the sensation of a seizure at this time, fever or chills. Her last bowel movement was yesterday. Review of Systems Constitutional: Reports: see HPI. EENTM: Reports: no symptoms. Cardiovascular: Reports: no symptoms. Respiratory: Reports: no symptoms. Gastrointestinal: Reports: see HPI. Musculoskeletal: Reports: see HPI. Neurological/Psychological: Reports: see HPI. Objective Last 24 Hrs of Vital Signs/I&O Vital Signs Date Time Temp Pulse Resp B/P Pulse O2 O2 Flow FiO2 Ox Delivery Rate 01/21 0635 98.0 65 18 122/74 96 Room Air 01/20 2133 97.0 74 20 118/70 95 Room Air 01/20 1356 98.2 80 20 116/64 95 Intake & Output 01/21 1600 01/21 0800 01/21 0000 Intake Total 240 480 Output Total Balance 240 480 Intake, Oral 240 480 Number 1 Bowel Movements Physical Exam General Appearance: Alert, Cooperative, Tremulous Skin: No Breakdown HEENT: EOMI, Mucous Membr. moist/pink Cardiovascular: Regular Rate, Normal S1, Normal S2, SYstolic murmur present, most pronounce in the aortic region Lungs: Normal Air Movement Abdomen: Normal Bowel Sounds, Soft, No Tenderness Extremities: No Edema, Normal Pulses Vascular: Pulses Symmetrical Current Medications: Current Medications Sig/Lenny Start time Last Medication Dose Route Stop Time Status Admin Acetaminophen 650 MG .STK-MED ONE 01/20 1255 DC PO 01/20 1256 Acetaminophen 650 MG Q6P PRN 01/18 2215 AC 01/20 PO 0431 Budesonide/ 2 PUF BID 01/18 2200 AC 01/21 Formoterol Fumarate INH 0829 Calcium/Vitamin D 1 TAB DAILY 01/19 1000 AC 01/21 PO 0828 Carbamazepine 200 MG 1200,1700 01/19 1200 AC 01/20 PO 1703 Carbamazepine 600 MG QPM 01/18 220 AC 01/20 PO 2130 Diphenhydramine HCl 25 MG 1400 01/20 1400 AC 01/20 IV 1439 Diphenhydramine HCl 25 MG 1800 01/19 1800 DC 01/19 IV 1834 Docusate Sodium 100 MG QAM 01/19 1000 AC 01/21 PO 0828 Fluoxetine HCl 60 MG DAILY 01/19 1000 AC 01/21 PO 0827 Gabapentin 1,600 MG QPM 01/19 2200 AC 01/20 PO 212 Gabapentin 1,200 MG 0700,1200,1700 01/19 0700 AC 01/21 PO 0523 Heparin Sodium 5,000 UNIT Q8 01/18 220 AC 01/21 (Porcine) SC 0525 Hydromorphone HCl 0.4 MG Q4P PRN 01/18 2330 AC 01/21 IV 1007 Lactulose 20 GM DAILY NEEDED PRN 01/18 221 AC 01/20 PO 0831 Linaclotide 290 MCG DAILY 01/19 1000 AC 01/21 PO 0828 Lorazepam 1 MG ONCE ONE 01/21 1030 DC 01/21 IV 01/21 1031 1034 Lorazepam 1 MG Q6 01/20 0600 AC 01/21 PO 0523 Meclizine HCl 25 MG TIDPRN PRN 01/18 221 AC 01/20 PO 1959 Methylprednisolone 1,000 MG 1200 01/21 1200 AC Dextrose/Water 1,000 ML IV Methylprednisolone 1,000 MG 1400 01/20 1400 DC 01/20 Dextrose/Water 1,000 ML IV 1439 Methylprednisolone 1,000 MG 1800 01/19 1800 DC 01/19 Dextrose/Water 1,000 ML IV 01/22 2000 1839 Multivitamins 1 TAB QAM 01/19 1000 AC 01/21 Therapeutic PO 0827 Omeprazole 40 MG DAILY AC 01/19 0700 AC 01/21 PO 0524 Ondansetron HCl 4 MG Q6-PRN PRN 01/18 221 AC 01/21 PO 1028 Oxycodone/ 1 TAB Q6P PRN 01/18 221 AC Acetaminophen PO Polyethylene Glycol 17 GM DAILY 01/19 1000 AC 01/21 PO 0828 Senna/Docusate Sodium 2 TAB DAILY PRN 01/18 221 AC 01/19 PO 1151 Temazepam 30 MG QPM 01/19 2200 AC 01/20 PO 2128 Assessment/Plan Assessment: 52 yo F with pmh of multiple sclerosis previously been on plasmapheresis last admitted for exacerbation in Sep 2016 (following Dr. Paulson), seizure, pseudoseizures, IBS, GERD, anxiety, depression, is here with another episode of MS exacerbation typically with increasing lower extremity weakness, sensation of pins and needles, gait instability and frequent falls over past 2 weeks. She reports urinary retention, wherein she feels the urge but at times has to push hard to evacuate the bladder. Dysuria+. Stool incontinence+. She has been sent in by Dr. Paulson. 1. MS exacerbation: * Continue with seizure precautions * IV solumedrol day 4/5. Continue premedication with Benadryl * Continue OT/PT * She does report interval improvement in generalized weakness. Will follow Dr. Paulson's recommendation. 2. Urinary retention in the setting of MS. * No evidence of overt urinary retention at this time. * Bladder scan prior to straight cath protocol Pain management with IV dilaudid. DVT ppx Lovenox. Full code. Problem List: 1. Multiple sclerosis 2. Gait instability Pain Ratin Pain Location: NA Pain Goal: Pain 4 or less Pain Plan: NA Tomorrow's Labs & Rationales: NA DVT/Prophylaxis: pharmacological Consulting Request: Consulting Specialty: Neurology Consulting Physician: Dr. Paulson Reason for Consult: MS exacerbation LORRAINE HAMMOND,[facility] 01/21/17 1220: Attending MD Review Statement Attending Statement Attending MD Statement: examined this patient, discuss w/resident/PA/SALES AND MARKETING MANAGER, agreed w/resident/PA/SALES AND MARKETING MANAGER, reviewed EMR data (avail), discussed with nursing, discussed with case mgmt, reviewed images, amended to note Attending Assessment/Plan: Patient was seen and examined on on the bedside. No active issues. Patient has passed bowel movement this am since admission. Patient reports no active issues are complaints, vitals are stable and labs reviewed. Her IV solumedrol dose has been changed to 10 AM instead of 3 PM as patient wants to be discharged on Sunday after receiving her last dose at 10 AM.
[2017-01-21 15:18] VITALS: BP 122/66
[2017-01-21 22:15] VITALS: BP 116/60
[2017-01-22 06:21] VITALS: BP 146/78
--- NOTE | 2017-01-22 09:04 | Patient Discharge Instructions ---
Discharge Instructions General Discharge Information You were seen/treated for: Multiple sclerosis exacerbation You had these procedures: IV solumedrol x 5 days Special Instructions: Please follow up with a primary care physician in 1 week after discharge Please follow up with Dr. Paulson after discharge regarding MS management Please continue home physical therapy Diet Continue normal diet: Yes Recommended Diet: Regular Activity Full Activity/No Limits: Yes Activity Self Limited: No Additional ACTIVITY Info: Increase as tolerated Avoid fall risk Acute Coronary Syndrome Inclusion Criteria At DC or during hospital stay patient has or had the following: ACS DIAGNOSIS No Discharge Core Measures Meds if any: Prescribed or Continued at Discharge Meds if any: NOT Prescribed or Continued at Discharge Congestive Heart Failure Inclusion Criteria At DC or during hospital stay patient has or had the following: CHF DIAGNOSIS No Discharge Core Measures Meds if any: Prescribed or Continued at Discharge Meds if any: NOT Prescribed or Continued at Discharge Cerebrovascular accident Inclusion Criteria At DC or during hospital stay patient has or had the following: CVA/TIA Diagnosis No Discharge Core Measures Meds if any: Prescribed or Continued at Discharge Meds if any: NOT Prescribed or Continued at Discharge Venous thromboembolism Inclusion Criteria VTE Diagnosis No VTE Type NONE VTE Confirmed by (Test) NONE Discharge Core Measures - Per Current guidelines, there needs to be overlap - treatment for the first 5 days of Warfarin therapy. - If discharged on Warfarin prior to 5 days of - overlap therapy, the patient will need to be - assessed for post discharge needs including - *Post discharge parental anticoagulation - *Warfarin and/or parental anticoagulation education - *Follow up date to check INR post discharge At least 5 days overlap therapy as Inpatient No Meds if any: Prescribed or Continued at Discharge Note: Overlap Therapy is Warfarin and Anticoagulant Meds if any: NOT Prescribed or Continued at Discharge
--- NOTE | 2017-01-22 09:06 | PN- Housestaff ---
ANDREA HAMMOND,SHANTEL 01/22/17 0906: Subjective Follow-up For: MS exacerbation Complaints: nausea/vomiting Subjective: She feels much better after IV solumedrol course. She wants to go home today. She is able to walk with a walker. No dysuria but she has chronic urinary retention. She had episode of nausea / vomiting, no abdominal pain. Review of Systems Constitutional: Denies: chills, fever, weakness. EENTM: Reports: no symptoms. Cardiovascular: Denies: chest pain, orthopena, palpitations, peripheral edema, syncope. Respiratory: Denies: cough, short of breath, sputum production, wheezing. Gastrointestinal: Reports: nausea, vomiting. Denies: abdominal pain, diarrhea. Genitourinary: Reports: no symptoms. Musculoskeletal: Reports: no symptoms. Neurological/Psychological: Reports: no symptoms. Hematologic/Endocrine: Reports: no symptoms. Objective Last 24 Hrs of Vital Signs/I&O Vital Signs Date Time Temp Pulse Resp B/P Pulse O2 O2 Flow FiO2 Ox Delivery Rate 01/22 0621 98.6 73 18 146/78 97 Room Air 01/22 0000 95 Room Air 01/21 2215 98.8 76 20 116/60 95 Room Air 01/21 1518 96.8 75 20 122/66 96 Intake & Output 01/22 1600 01/22 0800 01/22 0000 Intake Total 100 480 Output Total Balance 100 480 Intake, IV 0 Intake, Oral 100 480 Number 0 1 Bowel Movements Physical Exam General Appearance: Alert, Oriented X3, Cooperative, No Acute Distress Skin: No Rashes, No Breakdown, No Significant Lesion HEENT: Atraumatic, PERRLA, EOMI, Mucous Membr. moist/pink Neck: Supple, No JVD, No LAD Lymphatic: Cervical nl Cardiovascular: Regular Rate, Normal S1, Normal S2, No Murmurs Lungs: Clear to Auscultation, Normal Air Movement Abdomen: Normal Bowel Sounds, Soft, No Tenderness Neurological: Normal Speech, Strength at 5/5 X4 Ext, Sensation Intact, Cranial Nerves 3-12 NL Extremities: No Edema, Normal Pulses, No Tenderness/Swelling Vascular: Normal Pulses, Pulses Symmetrical Current Medications: Current Medications Sig/Lenny Start time Last Medication Dose Route Stop Time Status Admin Acetaminophen 650 MG Q6P PRN 01/18 2215 AC 01/22 PO 0821 Budesonide/ 2 PUF BID 01/18 2200 AC 01/22 Formoterol Fumarate INH 0824 Calcium/Vitamin D 1 TAB DAILY 01/19 1000 AC 01/22 PO 0819 Carbamazepine 200 MG 1200,1700 01/19 1200 AC 01/22 PO 1045 Carbamazepine 600 MG QPM 01/18 2200 AC 01/21 PO 2113 Diphenhydramine HCl 25 MG 1400 01/20 1400 AC 01/22 IV 1044 Docusate Sodium 100 MG QAM 01/19 1000 AC 01/22 PO 0819 Fluoxetine HCl 60 MG DAILY 01/19 1000 AC 01/22 PO 0819 Gabapentin 1,600 MG QPM 01/19 220 AC 01/21 PO 2114 Gabapentin 1,200 MG 0700,1200,1700 01/19 0700 AC 01/22 PO 1045 Heparin Sodium 5,000 UNIT Q8 01/18 2200 AC 01/22 (Porcine) SC 0559 Hydromorphone HCl 0.4 MG Q4P PRN 01/18 2330 AC 01/22 IV 0221 Lactulose 20 GM DAILY NEEDED PRN 01/18 2215 AC 01/20 PO 0831 Linaclotide 290 MCG DAILY 01/19 1000 AC 01/22 PO 0820 Lorazepam 1 MG Q6 01/20 0600 AC 01/22 PO 1045 Meclizine HCl 25 MG TIDPRN PRN 01/18 2215 AC 01/20 PO 1959 Methylprednisolone 1,000 MG 1100 01/22 1100 AC 01/22 Dextrose/Water 1,000 ML IV 1046 Methylprednisolone 1,000 MG 1200 01/21 1200 DC 01/21 Dextrose/Water 1,000 ML IV 1145 Multivitamins 1 TAB QAM 01/19 1000 AC 01/22 Therapeutic PO 0819 Omeprazole 40 MG DAILY AC 01/19 0700 AC 01/22 PO 0558 Ondansetron HCl 4 MG ONCE ONE 01/22 0945 DC 01/22 IV 01/22 0946 1000 Ondansetron HCl 4 MG .STK-MED ONE 01/22 0216 DC PO 01/22 0217 Ondansetron HCl 4 MG .STK-MED ONE 01/21 1733 DC IM 01/21 1734 Ondansetron HCl 4 MG Q6-PRN PRN 01/18 2215 AC 01/22 PO 0823 Oxycodone/ 1 TAB Q6P PRN 02/23 2215 AC Acetaminophen PO Polyethylene Glycol 17 GM DAILY 01/19 1000 AC 01/22 PO 0820 Senna/Docusate Sodium 2 TAB DAILY PRN 01/18 2215 AC 01/19 PO 1151 Temazepam 30 MG QPM 01/19 2200 AC 01/21 PO 2114 Lines/Diet/Fluids Lines: peripheral lines Assessment/Plan Assessment: 52 yo F with pmh of multiple sclerosis previously been on plasmapheresis last admitted for exacerbation in Sep 2016 (following Dr. Paulson), seizure, pseudoseizures, IBS, GERD, anxiety, depression, is here with another episode of MS exacerbation typically with increasing lower extremity weakness, sensation of pins and needles, gait instability and frequent falls over past 2 weeks. She reports urinary retention, wherein she feels the urge but at times has to push hard to evacuate the bladder. Dysuria+. Stool incontinence+. She has been sent in by Dr. Paulson. 1. MS exacerbation: * Continue with seizure precautions * IV solumedrol day #5. Continue premedication with Benadryl * Continue OT/PT * Will finish the solumedrol course and d/c home physical therapy today. Continue follow up Dr. Paulson as outpt. 2. Urinary retention in the setting of MS. * No evidence of overt urinary retention at this time. * Bladder scan prior to straight cath protocol 3. Anxiety/depression: continue prozac, ativan, temazepam home dose 4. Hx seizure/pseudoseizure: c/w carbamazepine, gabapentin 5. Nausea/vomiting: po zofran/IV zofran were given to manage symtpoms, monitor until discharge. Pain management: c/w home dose percocet DVT ppx Lovenox. Full code. Problem List: 1. Multiple sclerosis exacerbation Pain Ratin Pain Location: Muscle pain Pain Goal: Pain 4 or less Pain Plan: Home dose percocet d/c IV dilaudid anticipating discharge today Tomorrow's Labs & Rationales: DC today DVT/Prophylaxis: pharmacological Consulting Request: Consulting Specialty: Neurology Consulting Physician: Dr. Paulson Reason for Consult: MS exacerbation Discharge Plan Stable for Discharge? Yes Anticipated Discharge (Day): today JAMIR WILSON MD 01/22/17 0532: Attending MD Review Statement Attending Statement Attending MD Statement: examined this patient, discuss w/resident/PA/VETERINARY VIRUS SERUM INSPECTOR, agreed w/resident/PA/VETERINARY VIRUS SERUM INSPECTOR, reviewed EMR data (avail), discussed with nursing, discussed with case mgmt, amended to note Attending Assessment/Plan: The patient was seen and discussed with house staff. Agree with the plan of care as outlined.
--- NOTE | 2017-01-22 10:20 | Discharge Summary ---
Visit Information Visit Dates Admission Date: 01/18/17 Discharge Date: 01/22/17 Hospital Course Course Attending Physician: JAMIR WILSON MD Primary Care Physician: Dr. Latif Consulting Request: Consulting Specialty: Neurology Consulting Physician: Dr. Paulson Reason for Consult: MS exacerbation Hospital Course: 52 year-old lady with pmh of multiple sclerosis previously been on plasmapheresis last admitted for exacerbation in Sep 2016 (following Dr. Paulson), seizure, pseudoseizures, IBS, GERD, anxiety, depression came from home with increasing lower extremity weakness, sensation of pins and needles, gait instability and frequent falls over past 2 weeks. She reported urinary retention, and at times she had to push hard to evacuate the bladder. She had dysuria with stool incontinence. She has been sent in by Dr. Paulson. Initial V/S: 96.8F OR 72 RR 18 BP 198/62 97% on RA On exam: General Appearance Alert, Oriented X3, Cooperative, No Acute Distress, Skin No Rashes, No Breakdown, No Significant Lesion, HEENT Atraumatic, PERRLA, EOMI, Mucous Membr. moist/pink Neck Supple, No JVD, Lymphatic Cervical nl, Cardiovascular Regular Rate, Normal S1, Normal S2, No Murmurs, Lungs Clear to Auscultation, Normal Air Movement, Abdomen Normal Bowel Sounds, Soft, LLQ tenderness, no CVA tenderness, Neurology Speech normal, Power LE 4/5, UE 5/5, hyperreflexia, sensation and vision intact, involuntary jerking movements of the leg, tone increased. Labs: WBC 4.4. MRI brain (Sep 2016): No progression or active inflammation of MS Extremities No Clubbing, No Cyanosis, No Edema, Normal Pulses Vascular Normal Pulses, Pulses Symmetrical Labs: WBC 4.4, Hb/Hct 11/34, Na 138, K 4.1, BUN/Cr 15/0.8, UA unremarkable Patient was admitted to general medicine floor for following problem lists; 1. MS exacerbation: Patient was seen by Dr. Paulson during admission. Patient was on seizure precautions. She was given IV solumedrol 1000mg daily for 5-day course with premedication of Benadryl. During admission, she continued occupational and physical therapy. She will be discharged home with home physical therapy. She needs to follow up Dr. Paulson as outpt. 2. Chronic Urinary retention in the setting of MS: There was no evidence of overt urinary infection at this time. Bladder scan was checked but she didn't require straight cath protocol. 3. Anxiety/depression: She continued prozac, ativan, temazepam home dose 4. Hx seizure/pseudoseizure: She remained as seizure free. She continued home dose of carbamazepine & gabapentin 5. Nausea/vomiting: po zofran/IV zofran were given to manage symtpoms. Pain management: c/w home dose percocet DVT ppx Lovenox. Full code. Allergies: Coded Allergies: phenytoin (From DILANTIN) (Severe, can't breath and throat swells up 10/11/16) Latex, Natural Rubber (RASH 03/13/16) Sulfa (Sulfonamide Antibiotics) (Severe, VOMIT 03/13/16) Disposition Summary Disposition Principal Diagnosis: Acute MS exacerbation Additional Diagnosis: Chronic urinary retention Anxiety/depression Hx of seizure/pseudoseizure Nausea/vomiting Chronic pain Discharge Disposition: home health services Discharge Instructions General Discharge Information Code Status: Full Code Patient's Diet: Regular diet Patient's Activity: Increase as tolerated, continue home physical therapy Follow-Up Instructions/Appts: Please follow up with a primary care physician in 1 week after discharge Please follow up with Dr. Paulson after discharge regarding MS management Please continue home physical therapy Medications at Discharge Discharge Medications: Continue taking these medications: Lorazepam (Lorazepam) 1 MG TABLET 1 Tablet ORAL 4 TIMES A DAY Qty = 120 Comments: Last Taken: 01/22/17 Time: 12 PM Calcium Carbonate/Vitamin D3 (Calcium 500 + D Tablet) 500 MG-400 TABLET 1 Tablet ORAL TWICE DAILY Comments: Last Taken: 01/22/17 Time: 10AM Docusate Sodium (Docusate Sodium) 100 MG CAPSULE 1 Capsule ORAL Every Morning Comments: Last Taken: 01/22/17 Time: 10AM Gabapentin (Neurontin) 800 MG TABLET 2 Tablet ORAL Every night Qty = 210 Comments: Last Taken: 01/22/17 Time: 12 PM Gabapentin (Gabapentin) 600 MG TABLET 2 Tablet ORAL THREE TIMES DAILY Comments: Last Taken: 01/22/17 Time: 12 PM Linaclotide (Linzess) 290 MCG CAPSULE 1 Capsule ORAL Every Morning Qty = 30 Comments: Last Taken: 01/22/17 Time: 10AM Multivitamin (Daily Multiple Vitamin) 1 EACH TABLET 1 Tablet ORAL Every Morning Comments: Last Taken: 01/22/17 Time: 10AM Esomeprazole (Nexium) 40 MG CAPSULE.DR 1 Capsule ORAL DAILY Qty = 60 Comments: NOT GIVEN IN HOSPITAL Fluoxetine HCl (Fluoxetine HCl) 20 MG CAPSULE 3 Capsule ORAL DAILY Qty = 90 Comments: Last Taken: 01/22/17 Time: 10AM Temazepam (Temazepam) 30 MG CAPSULE 1 Capsule ORAL Every night Qty = 30 Comments: Last Taken: 01/21/17 Time: 9PM Carbamazepine (Tegretol) 200 MG TABLET 1 Tablet ORAL TWICE DAILY Qty = 150 Comments: Last Taken: 01/22/17 Time: 12 PM Carbamazepine (Tegretol) 200 MG TABLET 3 Tablet ORAL Every night Comments: Last Taken: 01/21/27 Time: 10PM Meclizine HCl (Meclizine HCl) 25 MG TABLET 1 Tablet ORAL THREE TIMES A DAY NEEDED as needed for DIZZINESS Comments: NOT GIVEN IN HOSPITAL Oxycodone HCl/Acetaminophen (Percocet 7.5-325 MG Tablet) 7.5 MG-325 MG TABLET 1 Tablet ORAL EVERY 6 HOURS NEEDED as needed for PAIN Qty = 30 Comments: NOT GIVEN IN HOSPITAL Lactulose (Lactulose) 10 GRAM/15 ML SOLUTION 20 Milliliters ORAL DAILY as needed for CONSTIPATION Qty = 20 Comments: Last Taken: 01/22/17 Time: 2 PM Polyethylene Glycol 3350 (Miralax) 17 GRAM POWD.PACK 1 Packet ORAL DAILY as needed for CONSTIPATION Instructions: dissolve in water Comments: Last Taken: 01/22/17 Time: 10AM Albuterol Sulfate (Proair Hfa) 90 MCG HFA.AER.AD 2 Puff Inhale through mouth Q6H as needed for SOB Qty = 9 Comments: NOT GIVEN IN HOSPITAL Budesonide/Formoterol Fumarate (Symbicort 160-4.5 Mcg Inhaler) (Unknown Strength ) HFA.AER.AD 2 PUFF Inhale through mouth TWICE DAILY as needed for SOB Qty = 102 Comments: Last Taken: 01/22/17 Time: 10AM Ondansetron HCl (Ondansetron HCl) 8 MG TABLET 1 Tablet ORAL THREE TIMES DAILY as needed for NAUSEA/VOMITING Qty = 90 Comments: Last Taken: 01/22/17 Time: 10AM Naloxegol Oxalate (Movantik) 25 MG TABLET 1 Tablet ORAL Every Morning Qty = 90 Comments: NOT GIVEN IN HOSPITAL Beclomethasone Dipropionate (QVAR) 80 MCG AER.W.ADAP 2 Puff Inhale through mouth TWICE DAILY as needed for SOB Comments: NOT GIVEN IN HOSPITAL Sennosides/Docusate Sodium (Senna S Tablet) 8.6 MG-50 MG TABLET 2 Tablet ORAL DAILY as needed for CONSTIPATION Comments: NOT GIVEN IN HOSPITAL Copies To: MINNIE HAMMOND,ALAINA; NAINA HAMMOND,RIYA Bradford; STEVE HAMMOND,JAMIR Attending MD Review Statement Documenting Attending: JAMIR WILSON MD Other Findings: The patient was seen and agree with the plan of care upon discharge.
[2017-01-22 14:41] VITALS: BP 122/68
== END 2017-01-22 16:32 | disposition home health service (06) | DRG 60 ==
LOC: ENRESERVDT → ENRESERVTM → ERH 14:16 → ERHI 19:25 → ENPENDDIS 19:25 → 2NA 19:25
PROVIDERS: Physician Assistant Medical; Student in an Organized Health Care Education/Training Program; ADMIT Student in an Organized Health Care Education/Training Program
DX: G35 Multiple sclerosis (principal); R56.9 Unspecified convulsions; R33.8 Other retention of urine; K58.9 Irritable bowel syndrome, unspecified; F41.9 Anxiety disorder, unspecified; F32.9 Major depressive disorder, single episode, unspecified; K21.9 Gastro-esophageal reflux disease without esophagitis; J45.909 Unspecified asthma, uncomplicated
CPT/HCPCS: 2NAP; 36415; 81003; 82436; 96374; 97116-GO; 97161-GP; 97165-GO; 97530-GO; J1040; J1200; J1642; J1644; J2060; J2405; J3101; J3490; J7060